=== PATIENT | female | born 1975 | race Caucasian/White ===

== ENCOUNTER 2021-03-21 11:01 | Emergency (ER) | payer OTHER, SELFPAY ==
[2021-03-21] VITALS (20 sets, daily range): BP systolic 90–145; BP diastolic 62–111; PULSE 72–99; RESP 16–25; TEMP 35.8; O2SAT 84–100
--- NOTE | ~2021-03-21 | CT_ITS ---
EXAMINATION: CT abdomen pelvis w con DATE: 03/21/2021 15:07 INDICATION: Nausea, vomiting and diarrhea. Chills. TECHNIQUE: Computed tomography (CT) of the abdomen and pelvis was performed with 100 cc Omnipaque 350 intravenous contrast. The dose-length product was 526.26 mGy-cm. Automated exposure control and iter ative reconstruction technique were employed. COMPARISON: None. FINDINGS: Lung bases are unremarkable. No significant pleural or pericardial effusion. Heart size is normal. The liver, spleen, pancreas, adrenal glands and kidneys are within normal limits. Gallbladder is present. There is mild diffuse thickening of the colon which is nonobstructive. No free air or fr ee fluid. No localized inflammation. No abnormal pelvic masses or fluid collections. There is evidenc e for previous tubal ligation. No significant vascular abnormality. No lymphadenopathy. No acute osse ous abnormality. There is a small accessory splenule inferior to the spleen. IMPRESSION: 1. Mild diffuse thickening of the colon, suspicious for colitis, most likely infectious or inflammato ry. Reviewed, dictated and finalized at location A. ER BEAD OPERATOR IMPRESSION: 1. Mild diffuse thickening of the colon, suspicious for colitis, most likely in fectious or inflammatory.
[2021-03-21 11:48] LABS: Basophils Absolute Auto 0.1 K/mm3 (0.0-0.1); Basophils Percent Auto 0.5 % (0.2-1.2); Eosinophils Percent Auto 0.2 % (0-4.4); Hematocrit 40.3 % (37.0-47.0); Hemoglobin 13.9 g/dL (12.0-15.0); Immature Granulocyte Absolute 0.08 K/mm3 (0.00-0.031); Immature Granulocyte Percent A 0.7 % (0-0.5); Lymphocytes Absolute Auto 0.42 K/mm3 (0.9-3.2); Lymphocytes Percent Auto 3.4 % (18.3-44.2); Mean Corpuscular HGB Conc 34.5 g/dl (32-36); Mean Corpuscular Hemoglobin 31.2 pg (26-34); Mean Corpuscular Volume 90.4 fl (80-100); Mean Platelet Volume 11.2 fl (7.4-10.4); Monocytes Absolute Auto 0.7 K/mm3 (0.1-0.6); Monocytes Percent Auto 5.8 % (2.6-8.5); Neutrophils Absolute Auto 10.9 K/mm3 (1.3-6.7); Neutrophils Percent Auto 89.4 % (45.5-73.1); Platelet Count Result 221 k/mm3 (150-375); Red Blood Count 4.46 M/mm3 (4.2-5.4); Red Cell Distribution Width 12.8 % (11.5-14.5); White Blood Count 12.2 K/mm3 (4.5-10.0)
[2021-03-21] MEDS: ONDANSETRON INJ 4 MG/2 ML VIAL IV PUSH ×2 (11:48→16:58)
[2021-03-21 12:02] LABS: Alanine Aminotransferase 18 U/L (4-35); Albumin Level 4.8 g/dL (3.5-5.1); Alkaline Phosphatase 100 U/L (38-126); Anion Gap 13 mmol/L (8-16); Aspartate Amino Transferase 27 U/L (14-36); Blood Urea Nitrogen 17 mg/dL (7-17); Carbon Dioxide 24 mmol/L (22-30); Chloride 101 mmol/L (98-107); Estimated CRCL calculation 72 ml/min; Estimated Glomerular Filt Rate > 60; Glucose 173 mg/dL (65-110); Lipase 45 U/L (23-300); Potassium 3.8 mmol/L (3.4-5.0); Sodium 138 mmol/L (137-145)
--- NOTE | 2021-03-21 13:16 | PC.NURSE ---
RN called to bedside for nausea and SOB. Pt not due for another dose of nausea medication yet, as it has been less than two hours. Lungs CTA bilaterally, pt with SpO2 100% on RA, unlabored respirations, speaking full sentences and able to stand and move around easily without exertion. RN informed pt a urine specimen was still needed for her workup, pt ambulated to independently. Provided ice chips upon request. Visitor at bedside and call light in reach, urine sent to lab.
[2021-03-21 13:31] LABS: Add Urine Microscopic? YES; Appearance Urine Cloudy (Clear); Bilirubin Urine Negative (Negative); Blood Urine 2+ (Negative); Color Urine Yellow (Yellow); Glucose Urine UA Negative (Negative); Ketones Urine 2+ mg/dL (Negative); Leukocyte Esterase Ur Negative LEU/UL (Negative); Mucus Urine Few /lpf; Nitrate Urine Negative (Negative); Protein Urine 3+ mg/dL (Negative); RBC Urine >75 /hpf (0-2); Specific Grav Ur 1.027 (1.001-1.035); Squamous Epithelial Cell Urine Many /hpf (Few); Urobilinogen Urine Negative mg/dL (<2.0)
[2021-03-21 13:36] LABS: Pregnancy On Board Control Positive; Urine Pregnancy Test Negative
--- NOTE | 2021-03-21 14:57 | PC.NURSE ---
RN to bedside to update pt on plan for CT scan and to administer nausea medication. CT came to bedside while RN talking with pt, will give nausea medication when she gets back from imaging.
[2021-03-21] MEDS: PROMETHAZINE HCL 25 MG/ML AMPUL 12.5 MG IV PUSH (15:23)
--- NOTE | 2021-03-21 15:30 | ED.GENADULT ---
HPI - General Adult General Chief complaint: Nausea/Vomiting/Diarrhea Stated complaint: n/v x 4 hours Time Seen by Provider: 03/21/21 11:30 History of Present Illness HPI narrative: Patient is a 45-year-old female who presents ER with abdominal cramping as well as vomiting and diarrhea. Reports she received a Covid booster last night at 7 PM and is unsure if this is related. No blood in stool. No fevers or chills or sweats. No known sick contacts. She reports she had some mild nausea after her initial second dose of Covid vaccination. Related Data Allergies Allergy/AdvReac Type Severity Reaction Status Date / Time No Known Allergies Allergy Unverified 03/21/21 11:33 Review of Systems Review of Systems: All systems reviewed & are unremarkable except as noted in HPI and below Constitutional: Constitutional: Denies chills, Denies fever(s) and Denies weakness ENT: Denies nasal congestion and Denies sore throat Cardiovascular: Cardiovascular: Denies chest pain, Denies rapid heart rate and Denies radiating jaw, neck or arm pain Respiratory: Respiratory: Denies cough, Denies dyspnea and Denies wheezing Gastrointestinal: Gastrointestinal: Reports abdominal pain, Reports diarrhea, Reports nausea and Reports vomiting Genitourinary: Genitourinary: Denies nocturia and Denies dysuria PMFSH Past Medical History Medical History (Updated 03/21/21 @ 15:52 by Mac Silva MD) Healthy female adult Surgical History Surgical History (Updated 03/21/21 @ 15:50 by Mac Silva MD) History of tonsillectomy Social History Social History (Updated 03/21/21 @ 15:50 by Mac Silva MD) Smoking status: Current every day smoker Exam Narrative: GENERAL: Uncomfortable-appearing, well-nourished, and actively vomiting. HEAD: Normocephalic, atraumatic. ENT: Mucous membranes moist. CHEST: Clear to auscultation. No respiratory distress. HEART: Regular rate and rhythm. Normal peripheral pulses. ABDOMEN: Soft, nontender, nondistended, normal active bowel sounds. EXTREMITIES: Normal range of motion. No edema. SKIN: Warm, dry, no rash. NEURO: Alert and oriented x3. PSYCH: Normal mood and affect. Course Course Emergency Course: Patient informed results. Will place on Cipro/Flagyl for home as well as Bentyl and Phenergan. Patient verbalized understanding. Vital Signs Vital signs: Vital Signs Temperature 96.5 F L 03/21/21 11:11 Pulse Rate 75 03/21/21 11:11 Respiratory Rate 16 03/21/21 11:11 Blood Pressure 145/111 H 03/21/21 11:11 Pulse Oximetry 100 03/21/21 11:11 Temperature 96.5 F L 03/21/21 11:11 Pulse Rate 74 03/21/21 11:30 Respiratory Rate 18 03/21/21 11:30 Blood Pressure 126/87 03/21/21 11:30 Pulse Oximetry 99 03/21/21 11:30 Medical Decision Making Vital Signs Vital Signs: Vital Signs Temperature 96.5 F L 03/21/21 11:11 Pulse Rate 75 03/21/21 11:11 Respiratory Rate 16 03/21/21 11:11 Blood Pressure 145/111 H 03/21/21 11:11 Pulse Oximetry 100 03/21/21 11:11 Temperature 96.5 F L 03/21/21 11:11 Pulse Rate 74 03/21/21 11:30 Respiratory Rate 18 03/21/21 11:30 Blood Pressure 126/87 03/21/21 11:30 Pulse Oximetry 99 03/21/21 11:30 Lab Data Result diagrams: 03/21/21 11:36 03/21/21 11:36 Labs: Lab Results 03/21/21 03/21/21 03/21/21 Range/Units 11:36 11:36 13:08 WBC 12.2 H (4.5-10.0) K/mm3 RBC 4.46 (4.2-5.4) M/mm3 Hgb 13.9 (12.0-15.0) g/dL Hct 40.3 (37.0-47.0) % MCV 90.4 (80-100) fl MCH 31.2 (26-34) pg MCHC 34.5 (32-36) g/dl RDW 12.8 (11.5-14.5) % Plt Count 221 (150-375) k/mm3 MPV 11.2 H (7.4-10.4) fl Immature Gran % (Auto) 0.7 H (0-0.5) % Neut % (Auto) 89.4 H (45.5-73.1) % Lymph % (Auto) 3.4 L (18.3-44.2) % Coffey % (Auto) 5.8 (2.6-8.5) % Eos % (Auto) 0.2 (0-4.4) % Baso % (Auto) 0.5 (0.2-1.2) % Lymph # (Auto) 0.42 L
== END 2021-03-21 17:12 | disposition home or self-care (01) ==
PROVIDERS: Emergency Provider Emergency Medicine
DX: K52.9 Noninfective gastroenteritis and colitis, unspecified (principal); F17.210 Nicotine dependence, cigarettes, uncomplicated; Z90.89 Acquired absence of other organs
CPT/HCPCS: 36415; 74177; 80053; 81001; 81025; 83690; 85025; 96374; 96375; 96376; 99284; J2405; J2550; Q9967

== ENCOUNTER 2023-03-11 07:34 | Outpatient (CLI) | payer BC, SELFPAY | END 2023-03-11 07:35 | disposition home or self-care (01) | PROVIDERS: PCP Family Medicine; Visit Provider Obstetrics & Gynecology | DX: Z01.812 Encounter for preprocedural laboratory examination (principal); N92.0 Excessive and frequent menstruation with regular cycle | CPT/HCPCS: 36415; 86850; 86860; 86870; 86880; 86900; 86901; 86902; 86971 ==

== ENCOUNTER 2023-03-12 02:31 | Day surgery (SDC) | payer BC, SELFPAY ==
[2023-03-06 12:17] VITALS: BMI 29.5
--- NOTE | 2023-03-06 12:22 | PC.NURSE ---
Report to the Outpatient Waiting Room, entrance under the green pavilion located off [facility], at time 8:15 on date 03/12/23. Planned Procedure Time: 10:15. Time changes happen often and if your time is changed the preop area will call you the afternoon before. - You and your visitor will be asked to self-screen and do not enter if you have any COVID symptoms. - A mask is optional within the hospital at this time. Patients may have clear liquids (water, carbonated beverages, clear teas, apple juice) until 3 hours prior to surgery (7:15) with a maximum of 20 ounces. - No food from midnight until time of surgery Take the following medications with a SIP of water the morning of surgery: N/A DO NOT STOP ANY OF YOUR OTHER PRESCRIPTION MEDICATIONS PRIOR TO SURGERY ?EXCEPT THE FOLLOWING Medications to discontinue per physician: N/A Date to take last dose: N/A Please no make-up, nail gibraltarian, hairspray, perfume, deodorant, or body powder the day of surgery. No jewelry (including any body piercings) or valuables the day of surgery, leave them at home. Please take a shower or bath the night before, or the morning of, surgery with an antibacterial soap. Wear comfortable, loose fitting clothing. - Jewelry must be removed prior to entering the operating room. Rings and piercings that are not removed may be cut off. - The hospital will not accept responsibility for valuables. - Please leave all valuables, including medications, at home the day of surgery. If you are going home after surgery, a licensed special client bus driver must drive you home. - NO public transportation without another adult if you receive anesthesia. - We recommend that an adult stay with you for 24 hours following discharge. - We also recommend that you do not drive, make important decision, drink alcoholic beverages, or take any drugs that were not prescribed by your health care provider for at least 24 hours after your discharge time. Follow any additional instructions given to you from your surgeon. If you or anyone in your household have experienced Covid symptoms in the past week, please notify your surgeon or the nurse liaison at the phone number below for possible testing. Telephone instructions given to PT - HORTENCIA ETIENNE and asked if any additional questions and then verbalized understanding. Patient advised to call surgeon office or pre surgery nurse liaison [phone] if any additional questions.
[2023-03-12] VITALS (11 sets, daily range): BP systolic 111–168; BP diastolic 67–97; PULSE 58–83; RESP 10–20; TEMP 36.4–36.9; O2SAT 94–100; BMI 28.4
--- NOTE | ~2023-03-12 | XR_ITS ---
EXAMINATION: CYSTOGRAM DATE: 03/12/2023 14:08 INDICATION: Exam post hysterectomy TECHNIQUE: Initial instrument specialist radiograph of the pelvis was performed. There was retrograde administration of Omnipaque 350 mixed with saline contrast into patient's existing Roche catheter. Fluoroscopic sarai ges of the pelvis were obtained in AP and left and right oblique projections. A post-void image was a lso performed. Fluoroscopy exposure time was 0.4 minutes. One overhead radiographs and 14 fluoroscopi c images were recorded. FINDINGS: Wired Sweatband Cutter radiograph demonstrates small amount of likely postoperative extraperitoneal gas at the periphe ry of the inferior pelvis. There are also a few phleboliths in the pelvis. Roche catheter in the blad armando. Contrast fills the bladder which demonstrate a normal contour. No evident mucosal irregularities , extraluminal contrast extravasation or vesicoureteral reflux. IMPRESSION: 1. Normal bladder with no evident leak. Reviewed, dictated and finalized at location A. ILE CLOTHING AND FOOTWEAR MECHANIC
[2023-03-12] MEDS: SCOPOLAMINE 1.5 MG PATCH TRANSDERM (07:37)
[2023-03-12] MEDS: KETOROLAC 15 MG/ML VIAL (*BKC) IV PUSH (07:38)
[2023-03-12] MEDS: ACETAMINOPHEN 500 MG TABLET 1000 MG PO (07:38)
[2023-03-12] MEDS: LACTATED RINGERS 1,000 ML 30 ML IV CONT ×2 (07:45→11:35)
--- NOTE | 2023-03-12 08:46 | P.PNAN_ITS ---
Anes - Initial Pre Proc Eval Procedure: Operation Date: 03/12/23 09:00 Proposed Procedures p Total Laparoscopic Hysterectomy with Bilateral Salpingectomy - Muna Odell MD Date/Time: 03/12/23 08:46 Surgeon: Muna Odell MD Pre Op Diagnosis: menorrhagia Patient Data Age: 47 Gender: F Height: 1.6 m Weight: 72.85 kg Last Vital Signs Temp 36.4 C L 03/12/23 07:30 Pulse 78 03/12/23 07:30 Resp 18 03/12/23 07:30 BP 147/85 H 03/12/23 07:30 Pulse Ox 99 03/12/23 07:30 Allergies Allergy/AdvReac Type Severity Reaction Status Date / Time No Known Allergies Allergy Verified 03/12/23 07:50 Home Medications Medication Instructions Recorded Confirmed Type albuterol sulfate 90 mcg/actuation 2 puff inhalation Q6H PRN SOB 03/12/23 03/12/23 History aerosol inhaler fluticasone 500 mcg-salmeterol 50 1 inh inhalation BID 03/12/23 03/12/23 History mcg/dose blistr powdr for inhalation (Wixela Inhub) Patient hx anesthesia problems: none Family hx anesthesia problems: none Results Review: All pre-operative results and documents have been reviewed as part of the pre- operative evaluation. [facility] Past Medical History Medical History COPD (chronic obstructive pulmonary disease) Overweight Surgical History Surgical History History of tonsillectomy Social History Social History Smoking packs per day: 0.75 Smoking cigarettes per day: 15.0 Years smoked: 25 Smoking pack-years: 18.75 Smoking status: Former smoker Tobacco type: cigarettes Smoking end date: 04/07/17 Alcohol intake: never Substance use: never Substance use type: does not use Living arrangements: with family Spiritual care concerns: No Anes - Eval Final PreProcedure Day of Procedure 03/12/23 08:46 Patient weight: overweight Heart: regular rate and rhythm Lungs: clear to auscultation Airway: Mallampati scale, special considerations poor dentition and other (multiple loose teeth) Neurological: alert and oriented Last oral intake: >/= 8 hours ASA classification: III Emergent: no Anesthetic plan: proceed Anesthesia type and monitoring: general ETT and standard monitoring Results Review: All pre-operative results and documents have been reviewed as part of the pre- operative evaluation. Informed Consent: The patient's anesthetic plan and its attendant risks including tooth injury or loss and benefits were discussed with the patient/family/POA. Questions were solicited and answers provided to the satisfaction of the patient/family/POA.
--- NOTE | 2023-03-12 09:02 | WPDHPUPDATE1 ---
History and Physical Update Update Date/Time: 03/12/23 09:02 History and Physical has been reviewed, including an updated exam of the patient. There are NO changes in the patient's condition. Risks, benefits, and alternatives have been discussed and questions answered. Patient agrees to proceed with procedure.
[2023-03-12] MEDS: ceFAZolin 2 GM/D5W 50 ML 2 GM/50 ML BAG IVPB (09:38)
[2023-03-12] MEDS: ceFAZolin SODIUM 1 GM VIAL (10:10)
--- NOTE | 2023-03-12 11:16 | SUR.OPER ---
DR REYNOSO NOTIFIED MERINO FELL OUT END OF SURGERY CLEANING PATIENT/TEAR NOTED IN END OF MERINO/URINE DRAINED IN BAG REMAINED CLEAR YELLOW AND BAG FLAT PRIOR TO CLEANING PATIENT. TO INSERT NEW MERINO PER DR REYNOSO.
--- NOTE | 2023-03-12 11:22 | W.PM.PROC2 ---
Procedure Note - Detailed Date of Procedure 03/12/23 Pre-op Diagnosis menorrhagia Post-op Diagnosis Same Procedure Performed Total laparoscopic hysterectomy. Surgeon Muna Odell MD Anesthesia General Indications Menorrhagia Findings Mildly enlarged fibroid uterus, normal tubes, normal ovaries, normal vulva, normal vagina, normal cervix. Description of Procedure This patient was taken to the operating room. She was prepped and draped in the dorsal lithotomy position after induction of general anesthesia. The uterine manipulator and Daria cup were placed. This was done with a speculum and tenaculum. The speculum was placed. The cervix was grasped with a tenaculum. The stay sutures were placed at 3 and 9:00 a.m.. The stay sutures of 0 Vicryl were brought through the appropriately sized Daria cup. The tip of the MARY manipulator was placed in the intrauterine cavity. The cup was slid into place around the cervix and into the fornices. It was locked into place. The sutures were then wrapped around the handle and tied under tension. A 5 mm skin incision was made in the left upper quadrant the abdomen. A 5 mm trocar was inserted into the intrauterine cavity under direct visualization of the scope. Pneumoperitoneum was achieved. A left lower quadrant 11 mm incision was made with scalpel. An 11 mm trocar was inserted into the anterior abdominal cavity under direct visualization the scope. A 5 mm infraumbilical incision was made with a scalpel and a 5 mm trocar was inserted the intra-abdominal cavity under direct visualization of the scope. Bilateral ureteral lysis was performed. This was done from the pelvic brim down to the uterine artery. This was done with careful dissection using sharp and blunt dissection. The fallopian tubes were removed bilaterally. The mesosalpinx around the fallopian tubes were cauterized transected with LigaSure cautery. This was done in a bilateral fashion from the ovary to the uterine cornua. The fallopian tube was transected at the uterine cornu and amputated. The tube was taken out the left lower quadrant trocar site. In a stepwise fashion along the lateral aspects of the uterus the round ligament and broad ligaments were cauterized transected down to the level of the uterine arteries. A bladder flap was created in the bladder was moved distally to the end of the cervix and over the Daria cup. The bilateral uterine arteries were cauterized and transected. Colpotomy was then performed. In a circumferential fashion the vagina was transected using unipolar cautery. The incision was made down on the Daria cup. The uterus and cervix were taken out through the vagina. A pneumo occluder was placed in the vagina. The vaginal cuff was closed with a 0 V lock suture in a running fashion. The pelvis was irrigated with copious amounts antibiotic irrigation. The ureters were again examined and found to be intact and flowing freely under the uterine arteries into the bladder. The bladder was intact. It was examined directly. The vagina was irrigated with Betadine solution after removal of the Pneumo occluder. The patient was taken to recovery room. She was stable condition. Sponge lap and needle counts were correct x2. Drains Yes Packing No Pathology Yes Complications No immediate complications Condition Stable Disposition Floor
[2023-03-12] MEDS: fentaNYL CITRATE INJ (*CRX) 100 MCG/2 ML VIAL 25 MCG IV PUSH ×4 (12:17→13:10)
[2023-03-12] MEDS: DEXTROSE 5%/0.45% SOD CHL 1,000 ML 125 ML IV CONT ×2 (14:26→22:21)
[2023-03-12] MEDS: IBUPROFEN 600 MG TABLET PO (14:26)
[2023-03-12] MEDS: ONDANSETRON INJ 4 MG/2 ML VIAL IV PUSH ×2 (15:01→22:25)
[2023-03-12] MEDS: diphenhydrAMINE HCl INJ 50 MG/ML VIAL IV PUSH (17:25)
[2023-03-12] MEDS: METOCLOPRAMIDE HCL INJ 10 MG/2 ML VIAL IV PUSH (18:45)
[2023-03-12] MEDS: PROMETHAZINE HCL 12.5 MG SUPP.RECT RECTAL (22:50)
[2023-03-13 05:20] VITALS: BP 130/74; PULSE 79
[2023-03-13] MEDS: KETOROLAC 30 MG/ML VIAL (*BKC) IV PUSH (08:20)
--- NOTE | 2023-03-13 08:32 | PM.GYNPNOP ---
USABILITY STRATEGIST - A/P Postoperative Procedures: Procedures Operation Date: 03/12/23 09:00 Actual Procedure Side Surgeon p Total Laparoscopic Hysterectomy with Bilateral Salpingectomy Bilateral Muna Odell MD Postoperative day: 1 Postoperative status: doing well Postoperative plan: see orders Time Spent With Patient Time: Total time spent is greater than 50% in coordination of care (as documented) at patient's floor/unit and/or counseling patient: Time with patient: less than 15 minutes USABILITY STRATEGIST- PN:Subj Post-Op Subjective Date/time seen: 03/13/23 08:32 Subjective: patient reports feeling better, patient has no complaints and pain is well controlled Exam Const: General: healthy appearing, comfortable and no acute distress Resp: Auscultation: clear to auscultation bilaterally, no rales, no rhonchi and no wheezes Cardio: Rate: regular rate Heart sounds: no click, no murmurs and no rubs GI: Inspection: non-distended Auscultation: normal bowel sounds Extrem: General: normal to inspection, no pedal edema and no calf tenderness USABILITY STRATEGIST - PN: Obj Data Vital Signs Vital Signs: Vital Signs - 24 hr 03/12/23 11:40 03/12/23 11:55 03/12/23 12:10 Temperature 97.8 F Pulse Rate 62 79 75 Respiratory Rate 17 10 L 12 Blood Pressure 152/77 H 150/97 H 159/96 H Pulse Oximetry 100 100 100 Oxygen Delivery Simple Face Mask Simple Face Mask Room Air Oxygen Flow Rate 10 10 03/12/23 12:25 03/12/23 12:40 03/12/23 12:55 Temperature Pulse Rate 67 67 58 L Respiratory Rate 11 L 10 L 11 L Blood Pressure 152/92 H 127/70 135/67 Pulse Oximetry 97 95 94 Oxygen Delivery Room Air Room Air Room Air Oxygen Flow Rate 03/12/23 14:10 03/12/23 14:30 03/12/23 17:26 Temperature 98.5 F 98.4 F Pulse Rate 66 Respiratory Rate 20 Blood Pressure 152/86 H Pulse Oximetry 98 Oxygen Delivery Room Air Oxygen Flow Rate 03/12/23 21:00 03/12/23 22:30 03/13/23 05:20 Temperature 98.0 F 98.1 F Pulse Rate 83 66 79 Respiratory Rate 20 20 Blood Pressure 111/83 168/72 H 130/74 Pulse Oximetry 99 Oxygen Delivery Oxygen Flow Rate Intake/Output Intake/Output: Intake & Output 03/10/23 03/11/23 03/12/23 03/13/23 23:59 23:59 23:59 23:59 Intake Total 2300 250 Output Total 1005 350 Balance 1295 -100 Meds/Results Medications: Active Medications Generic Name Dose Route Start Last Admin Trade Name Freq PRN Reason Stop Dose Admin Hydrocodone Bitart/Acetaminophen 1 tab 03/12/23 13:17 Hydrocodone/Acetaminophen (*Crx) 5-325 Mg Tablet PO Q3H PRN Pain Rated 5 or Less Hydrocodone Bitart/Acetaminophen 1 tab 03/12/23 13:17 Hydrocodone/Acetaminophen (*Crx) 10-325 Mg Tablet PO Q3H PRN Pain Rated 6 or Greater Albuterol 2 puff 03/12/23 13:17 Albuterol Sulfate (*Sp) Aerosol 1 Puff INHALATION Q6H PRN Shortness Of Breath Dextrose/Sodium Chloride 1,000 mls @ 125 mls/hr 03/12/23 13:17 03/13/23 05:49 Dextrose 5% Sodium Chloride 0.45% IV CONT Not Given .Q8H ELISA Ibuprofen 600 mg 03/12/23 13:17 03/12/23 14:26 Ibuprofen 600 Mg Tablet PO 600 mg Q6H PRN Administration Cramping Ketorolac Tromethamine 30 mg 03/12/23 13:17 Ketorolac 30 Mg/Ml Vial (*Bkc) IV PUSH 03/17/23 13:16 Q6H PRN Pain Rated 4-6 Metoclopramide HCl 10 mg 03/12/23 18:18 03/12/23 18:45 Metoclopramide Hcl Inj 10 Mg/2 Ml Vial IV PUSH 10 mg Q6HR PRN Administration Nausea And Vomiting Naloxone HCl 0.1 mg 03/12/23 13:17 Naloxone Hcl 0.4 Mg/Ml Vial IV PUSH Q2M PRN Respiratory rate less than 10 Ondansetron HCl 4 mg 03/12/23 13:17 03/12/23 22:25 Ondansetron Inj 4 Mg/2 Ml Vial IV PUSH 4 mg Q6H PRN Administration Nausea And Vomiting Promethazine HCl 12.5 mg 03/12/23 18:20 03/12/23 22:50 Promethazine Hcl 12.5 Mg Supp.Rect RECTAL 12.5 mg ONCE PRN Administration Nausea And Vomiting Fluticasone/Salmeterol 2 puff 03/12
[2023-03-13 08:45] VITALS: BP 147/77; PULSE 72; RESP 18; TEMP 37.2; O2SAT 95
[2023-03-13] MEDS: HYDROcodone/acetaminophen (*CRX) 5-325 MG TABLET 1 TAB PO (10:51)
[2023-03-13] MEDS: SIMETHICONE 80 MG TAB.CHEW PO (10:57)
[2023-03-13] MEDS: DOCUSATE SODIUM 100 MG CAPSULE PO (10:57)
== END 2023-03-13 12:35 | disposition home or self-care (01) ==
LOC: ANHSURGERY 11:22 → ANHOB2 13:28
PROVIDERS: PCP Family Medicine; Visit Provider Obstetrics & Gynecology
PROC: 0UT9FZZ Resection of Uterus, Via Natural or Artificial Opening With Percutaneous Endoscopic Assistance (ICD-10-PCS; CPT 58571; principal; 2023-03-12 09:00)
DX: N92.0 Excessive and frequent menstruation with regular cycle (principal); N87.9 Dysplasia of cervix uteri, unspecified; N88.8 Other specified noninflammatory disorders of cervix uteri; N84.0 Polyp of corpus uteri; N70.11 Chronic salpingitis; Z98.51 Tubal ligation status; J44.9 Chronic obstructive pulmonary disease, unspecified; Z79.51 Long term (current) use of inhaled steroids; Z87.891 Personal history of nicotine dependence
CPT/HCPCS: 58571; 36415; 51600; 74430; 86850; 86860; 86870; 86880; 86900; 86901; 86971; 88307; 99199; A9270; J0330; J0690; J1100; J1170; J1200; J1885; J2250; J2405; J2704; J2765; J3010; J7030; J7120; Q9967

== ENCOUNTER 2023-10-14 13:22 | Emergency (ER) | payer BC, SELFPAY ==
[2023-10-14 13:24] VITALS: BP 113/68; PULSE 91; RESP 20; TEMP 36.3; O2SAT 100
[2023-10-14] MEDS: ONDANSETRON INJ 4 MG/2 ML VIAL IV PUSH (16:02)
[2023-10-14] MEDS: SODIUM CHLORIDE 0.9% IV 1,000 ML 999 ML IV CONT ×2 (16:02→16:36)
[2023-10-14 16:05] LABS: Basophils Absolute Auto 0.1 K/mm3 (0.0-0.1); Basophils Percent Auto 0.3 % (0.2-1.2); Hematocrit 43.8 % (37.0-47.0); Hemoglobin 15.4 g/dL (12.0-15.0); Immature Granulocyte Percent A 0.6 % (0-0.5); Lymphocytes Absolute Auto 0.64 K/mm3 (0.9-3.2); Lymphocytes Percent Auto 3.8 % (18.3-44.2); Mean Corpuscular HGB Conc 35.2 g/dl (32-36); Mean Corpuscular Hemoglobin 31.6 pg (26-34); Mean Corpuscular Volume 89.9 fl (80-100); Mean Platelet Volume 11.3 fl (7.4-10.4); Monocytes Absolute Auto 0.6 K/mm3 (0.1-0.6); Monocytes Percent Auto 3.8 % (2.6-8.5); Neutrophils Absolute Auto 15.6 K/mm3 (1.3-6.7); Neutrophils Percent Auto 91.5 % (45.5-73.1); Platelet Count Result 249 k/mm3 (150-375); Red Blood Count 4.87 M/mm3 (4.2-5.4); Red Cell Distribution Width 12.7 % (11.5-14.5)
[2023-10-14 16:14] LABS: Alanine Aminotransferase 19 U/L (6-35); Albumin Level 5.3 g/dL (3.5-5.1); Alkaline Phosphatase 97 U/L (38-126); Anion Gap 16 mmol/L (4-12); Aspartate Amino Transferase 30 U/L (14-36); Blood Urea Nitrogen 17 mg/dL (7-17); Calcium 10.1 mg/dL (8.4-10.2); Carbon Dioxide 22 mmol/L (22-30); Chloride 103 mmol/L (98-107); Estimated CRCL calculation 70 ml/min; Estimated Glomerular Filt Rate > 60; Glucose 151 mg/dL (65-110); Lipase 43 U/L (23-300); Potassium 4.1 mmol/L (3.4-5.0); Sodium 141 mmol/L (137-145)
--- NOTE | 2023-10-14 16:30 | ED.NAVMDI ---
HPI - Nausea/Vomiting/Diarrhea General Chief complaint: Nausea/Vomiting/Diarrhea Stated complaint: vomiting Time Seen by Provider: 10/14/23 15:12 History of Present Illness HPI Narrative: 48-year-old female presents emergency room for evaluation of sudden onset nausea vomiting and diarrhea since 3:00 a.m. this morning. Denies any blood in her emesis or stool. Symptoms associated with abdominal cramping. Denies any fever. Denies any known ill contacts. Related Data Allergies Allergy/AdvReac Type Severity Reaction Status Date / Time No Known Allergies Allergy Verified 10/14/23 15:21 Review of Systems Review of Systems: ROS unremarkable except for noted in HPI PMFSH Past Medical History Medical History COPD (chronic obstructive pulmonary disease) Overweight Surgical History Surgical History History of tonsillectomy Social History Social History Smoking packs per day: 0.75 Smoking cigarettes per day: 15.0 Years smoked: 25 Smoking pack-years: 18.75 Smoking status: Former smoker Tobacco type: cigarettes Smoking end date: 04/07/17 Alcohol intake: never Substance use: never Substance use type: does not use Living arrangements: with family Spiritual care concerns: No Exam Narrative: GENERAL: Well-appearing, well-nourished, no physical limitations, and in no acute distress. HEAD: Normocephalic, atraumatic. EYES: Conjunctivae normal, PERRLA and EOMI. ENT: Mucous membranes dry. NECK: Supple. No meningeal signs. No adenopathy or masses. No carotid bruits or JVD CHEST: Clear to auscultation. No respiratory distress. No wheezes rales or rhonchi. HEART: Regular rate and rhythm. No murmur heard. Normal peripheral pulses. ABDOMEN: Soft, nontender, nondistended, normal active bowel sounds. BACK: No CVA tenderness EXTREMITIES: Normal range of motion. No edema. No clubbing or cyanosis SKIN: Warm, dry, no rash. No noted wounds NEURO: No focal deficits. Alert and oriented x3. MAEW. CN's II-XI intact bilaterally, normal gait PSYCH: Cooperative. Normal mood and affect. Course Vital Signs Vital signs: Vital Signs Temperature 36.3 C L 10/14/23 13:24 Pulse Rate 91 10/14/23 13:24 Respiratory Rate 20 10/14/23 13:24 Blood Pressure 113/68 10/14/23 13:24 Pulse Oximetry 100 10/14/23 13:24 Oxygen Delivery Room Air 10/14/23 13:24 Temperature 36.3 C L 10/14/23 13:24 Pulse Rate 91 10/14/23 13:24 Respiratory Rate 20 10/14/23 13:24 Blood Pressure 113/68 10/14/23 13:24 Pulse Oximetry 100 10/14/23 13:24 Oxygen Delivery Room Air 10/14/23 13:24 MDM - Nausea/Vomiting/Diarrhea Lab Data 10/14/23 15:46 10/14/23 15:46 Labs: Lab Results 10/14/23 10/14/23 Range/Units 15:46 17:31 WBC 17.0 H (4.5-10.0) K/mm3 RBC 4.87 (4.2-5.4) M/mm3 Hgb 15.4 H (12.0-15.0) g/dL Hct 43.8 (37.0-47.0) % MCV 89.9 (80-100) fl MCH 31.6 (26-34) pg MCHC 35.2 (32-36) g/dl RDW 12.7 (11.5-14.5) % Plt Count 249 (150-375) k/mm3 MPV 11.3 H (7.4-10.4) fl Immature Gran % (Auto) 0.6 H (0-0.5) % Neut % (Auto) 91.5 H (45.5-73.1) % Lymph % (Auto) 3.8 L (18.3-44.2) % Lincoln % (Auto) 3.8 (2.6-8.5) % Eos % (Auto) 0.0 (0-4.4) % Baso % (Auto) 0.3 (0.2-1.2) % Lymph # (Auto) 0.64 L (0.9-3.2) K/mm3 Lincoln # (Auto) 0.6 (0.1-0.6) K/mm3 Eos # (Auto) 0.0 (0-0.3) K/mm3 Baso # (Auto) 0.1 (0.0-0.1) K/mm3 Abs Immat Gran (auto) 0.10 H (0.00-0.031) K/mm3 Absolute Neuts (auto) 15.6 H (1.3-6.7) K/mm3 Absolute Nucleated RBC 0.000 (0.0-0.012) K/mm3 Nucleated RBC % 0.0 (0.0-0.2) % Sodium 141 (137-145) mmol/L Potassium 4.1 (3.4-5.0) mmol/L Chloride 103 (98-107) mmol/L Carbon Dioxide 22 (22-30) mmo
[2023-10-14] MEDS: DICYCLOMINE HCL INJ 20 MG/2 ML VIAL IM (16:36)
[2023-10-14 18:15] LABS: Appearance Urine Cloudy (Clear); Bacteria Urine Rare /hpf; Bilirubin Urine Negative (Negative); Blood Urine 2+ (Negative); Color Urine Yellow (Yellow); Glucose Urine UA Negative (Negative); Ketones Urine 1+ mg/dL (Negative); Leukocyte Esterase Ur Negative LEU/UL (Negative); Mucus Urine Present /lpf; Need Manual Microscopic Reviewed; Nitrate Urine Negative (Negative); Protein Urine 1+ mg/dL (Negative); RBC Urine 21-50 /hpf (0-2); Squamous Epithelial Cell Urine Moderate /hpf (Few); Urobilinogen Urine 0.2 mg/dL (<2.0); WBC Urine 0-5 /hpf (0-3)
[2023-10-14 18:16] LABS: Add Urine Microscopic? YES
== END 2023-10-14 18:35 | disposition home or self-care (01) ==
PROVIDERS: Emergency Provider Nurse Practitioner Family; PCP Family Medicine
DX: A05.9 Bacterial foodborne intoxication, unspecified (principal); J44.9 Chronic obstructive pulmonary disease, unspecified; E66.3 Overweight; Z68.27 Body mass index [BMI] 27.0-27.9, adult; Z87.891 Personal history of nicotine dependence
CPT/HCPCS: 36415; 80053; 81001; 81025; 83690; 85025; 96361; 96372; 96374; 99284; J0500; J2405; J7030